=== PATIENT | female | born 1995 | race African-American/Black ===

== ENCOUNTER 2020-01-01 17:18 | Inpatient (IN) | payer MEDICAID, OTHER ==
[~2020-01-01] VITALS: Ht 162.6 cm; Wt 73.9 kg
[2020-01-01 18:54] LABS: CLARITY URINE CLEAR (CLEAR); COLOR URINE YELLOW (YELLOW); KETONES URINE NEGATIVE (NEGATIVE); LEUKOCYTE ESTERASE URINE 3+ (NEGATIVE); NITRITE URINE NEGATIVE (NEGATIVE); OCCULT BLOOD URINE NEGATIVE (NEGATIVE); PROTEIN URINE NEGATIVE (NEGATIVE); SPECIFIC GRAVITY URINE 1.011 (1.005-1.030)
[2020-01-01] MEDS ORDERED: CARBOPROST TROMETHAMINE 250 MCG/ML AMPUL IM PRN (20:15)
[2020-01-01] MEDS ORDERED: DEXT 5%/LR + PITOCIN 20UNITS/L 1,000 ML IV SCH (20:15)
[2020-01-01] MEDS ORDERED: MISOPROSTOL 100MCG TABLET VG SCH (20:15)
[2020-01-01] MEDS ORDERED: LIDOCAINE HCL 1% 20ML VIAL (Pyxis) INJ INFIL SCH (20:15)
[2020-01-01] MEDS ORDERED: METHYLERGONOVINE MALEATE 0.2 MG/ML IM PRN (20:15)
[2020-01-01] MEDS ORDERED: EPHEDRINE SULFATE 50MG/ML VIAL ONE (20:57)
[2020-01-01] MEDS ORDERED: ONDANSETRON HCL 4MG/2ML INJ ONE (20:57)
[2020-01-01] MEDS ORDERED: OXYTOCIN 10 UNITS/ML 1ML ONE (20:57)
[2020-01-01] MEDS ORDERED: MORPHINE SULFATE/PF 1MG/ML 10ML AMP ONE (20:57)
[2020-01-01] MEDS ORDERED: CEFAZOLIN SODIUM 1000MG/VIAL ONE (20:57)
[2020-01-01] MEDS ORDERED: FENTANYL CITRATE/PF 50MCG/ML 2ML VIAL ONE (20:57)
[2020-01-01 20:58] LABS: BASOPHILS % 0.2 % (0.0-2.0); EOSINOPHILS % 0.7 % (0.0-5.0); HEMATOCRIT. 31.6 % (36.0-48.0); HEMOGLOBIN. 10.4 g/dL (12.0-16.0); LYMPHOCYTES % 20.9 % (20.0-50.0); MEAN CORPUSCULAR HEMOGLOBIN 27.1 pg (28.0-32.0); MEAN PLATELET VOLUME 9.4 fl (7.4-10.4); MONOCYTES % 13.5 % (2.0-8.0); NEUTROPHILS % 64.7 % (40.0-76.0); PLATELET 226 x1000/uL (130-400); RED BLOOD CELL COUNT 3.86 mill/uL (4.2-5.4); RED CELL DISTRIBUTION WIDTH 17.7 % (11.6-14.6)
[2020-01-01] MEDS ORDERED: SODIUM CHLORIDE 0.9% 10ML VIAL ONE (21:01)
[2020-01-01 21:06] LABS: INR 0.9; PARTIAL THROMBOPLASTIN TIME 25.2 sec (23.4-31.0); PROTHROMBIN TIME 9.8 sec (9.6-11.0)
[2020-01-01] MEDS ORDERED: CITRIC ACID/SODIUM CITRATE SOLN 30ML UDC PO NR (21:15)
[2020-01-01] MEDS: LACTATED RINGERS 1,000 ML IV SCH ×2 (21:20→21:31)
[2020-01-01 21:41] LABS: HEPATITIS B SURFACE ANTIGEN NEGATIVE
[2020-01-01] MEDS ORDERED: MIDAZOLAM HCL 2 MG/2 ML VIAL ONE (22:47)
[2020-01-01] MEDS ORDERED: DIPHENHYDRAMINE 50MG/ML VIAL ONE (22:49)
[2020-01-01] MEDS ORDERED: KETOROLAC 60MG/2ML VIAL IM ONE (23:02)
[2020-01-01] MEDS ORDERED: RHO(D) IMMUNE GLOBULIN 300 MCG/SYR IM PRN (23:30)
[2020-01-01] MEDS ORDERED: KETOROLAC 30MG/ML VIAL IV PRN (23:30)
[2020-01-01] MEDS ORDERED: IBUPROFEN 400MG TABLET PO PRN (23:30)
[2020-01-01 23:31] LABS: *AMPHETAMINES SCREEN URINE NEGATIVE (NEGATIVE); *BARBITURATES SCREEN URINE NEGATIVE (NEGATIVE); *BENZODIAZEPINES SCREEN URINE NEGATIVE (NEGATIVE); *COCAINE SCREEN URINE NEGATIVE (NEGATIVE); METHADONE URINE SCREEN NEGATIVE (NEGATIVE); OPIATES URINE SCREEN NEGATIVE (NEGATIVE)
[2020-01-01 23:32] LABS: CANNABINOID URINE SCREEN NEGATIVE (NEGATIVE); PHENCYCLIDINE URINE SCREEN NEGATIVE (NEGATIVE)
[2020-01-01] MEDS ORDERED: NALOXONE HCL 0.4 MG/ML 1ML VIAL IV PRN (23:45)
[2020-01-01] MEDS ORDERED: DIPHENHYDRAMINE 50MG/ML VIAL IV PRN (23:45)
[2020-01-01] MEDS ORDERED: BUTORPHANOL TARTRATE 2 MG/ML VIAL IV PRN (23:45)
[2020-01-02] VITALS (8 sets, daily range): BP systolic 103–117; BP diastolic 50–70
[2020-01-02] MEDS: DEXT 5%/LR + PITOCIN 20UNITS/L 1,000 ML IV SCH ×2 (00:36→10:19)
[2020-01-02 07:36] LABS: BASOPHILS % 0.1 % (0.0-2.0); EOSINOPHILS % 0.8 % (0.0-5.0); HEMATOCRIT. 26.8 % (36.0-48.0); HEMOGLOBIN. 8.8 g/dL (12.0-16.0); LYMPHOCYTES % 22.1 % (20.0-50.0); MEAN CORPUSCULAR HEMOGLOBIN 27.1 pg (28.0-32.0); MEAN CORPUSCULAR VOLUME 82.2 fL (81.0-99.0); MEAN PLATELET VOLUME 9.2 fl (7.4-10.4); MONOCYTES % 11.5 % (2.0-8.0); NEUTROPHILS % 65.5 % (40.0-76.0); PLATELET 180 x1000/uL (130-400); RED BLOOD CELL COUNT 3.26 mill/uL (4.2-5.4); RED CELL DISTRIBUTION WIDTH 17.4 % (11.6-14.6)
[2020-01-02] MEDS ORDERED: KETOROLAC 30MG/ML VIAL IV SCH ×2 (15:30)
[2020-01-02] MEDS: BISACODYL 10MG SUPP PR PRN (22:56)
[2020-01-02] MEDS: IBUPROFEN 800MG TABLET PO PRN (22:56)
[2020-01-02] MEDS ORDERED: BISACODYL 5MG TABLET PO PRN (23:45)
[2020-01-03] MEDS: BISACODYL 10MG SUPP PR PRN (00:10)
[2020-01-03] MEDS ORDERED: IBUP-2030 MT (03:15)
[2020-01-03] MEDS: IBUPROFEN 800MG TABLET PO PRN ×2 (04:57→10:31)
[2020-01-03 08:20] VITALS: BP 106/63
== END 2020-01-03 17:20 | disposition home or self-care (01) | DRG 540 ==
LOC: INTOOBSV 17:18 → 8 EST LDRP 17:18 → OBSVTOIN 17:18 → 8EST 01-02 01:20
PROVIDERS: ADMIT Obstetrics & Gynecology; ATTEND Obstetrics & Gynecology
PROC: 10D00Z1 Extraction of Products of Conception, Low, Open Approach (ICD-10-PCS; principal; 2020-01-01)
DX: O34.211 Maternal care for low transverse scar from previous cesarean delivery (principal); O77.0 Labor and delivery complicated by meconium in amniotic fluid; Z37.0 Single live birth; Z3A.40 40 weeks gestation of pregnancy
CPT/HCPCS: 36415; 76805; 76818; 80305; 81003; 85025; 86592; 86703; 86762; 86850; 86900; 87340; 88307; 99281; G0378; J0690; J1200; J1885; J2250; J2274; J2405; J2590; J3010; J3490